=== PATIENT | female | born 1990 | race African-American/Black ===

== ENCOUNTER 2016-08-21 17:07 | Emergency (ER) | payer OTHER ==
[2016-08-21] MEDS ORDERED: ACETAMINOPHEN 325 MG TAB As Ordered ONE (20:23)
--- NOTE | 2016-08-21 20:40 | EDDOCDS ---
Nurse's Notes [facility] Name: Xiomara Garg Age: 26 yrs Sex: Female : 1990 Arrival Date: 08/21/2016 Time: 17:07 Bed TR8 Private MD: NO PRIMARY PHYSICIAN, . Diagnosis: Pain in left knee-CHRONIC Presentation: 08/21 17:48 Presenting complaint: Patient states: Left knee pain, chronic, denies injury, pain much dwg worse when colder. Adult Sepsis Screening: The patient does not have new or worsening altered mentation. Patient's respiratory rate is less than 22. Systolic blood pressure is greater than 100. Patient has a qSOFA score of 0- Negative Sepsis Screen. Suicide/Homicide risk assessment- the patient denies having any suicidal and/or homicidal ideations and does not present with any other emotional, behavioral or mental health complaints. Status: The patient is a dependent. Transition of care: patient was not received from another setting of care. 17:48 Acuity: BREANA Level 4 dwg 17:48 Method Of Arrival: Walkin/Carried/Asstd dwg 17:50 Presenting complaint: Patient states: States 24 weeks . dw Triage Assessment: 17:50 General: Appears in no apparent distress. Pain: Pain currently is 8 out of 10 on a pain dwg scale. Pt Declines HIV testing. 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 none - PMHx: Knee pain; - PSHx: none; - Social history: Smoking status: Patient states was never smoker of tobacco. No barriers to communication noted, The patient speaks fluent Bengali. - Family history: Not pertinent. - : The pt / caregiver states he / she is not on anticoagulants. Home medication list is obtained from the patient. - Exposure Risk Screening:: None identified. Screenin:37 Screening information is obtained from the patient. Fall risk: No risks identified. mb9 Assistance ADL's: requires no assistance with activities of daily living. Abuse/DV Screen: The patient / caregiver reports he/she is: not in a situation that causes fear, pain or injury. Nutritional screening: No deficits noted. Advance Directives: There is no active DNR order. home support is adequate. Assessment: 20:31 General: Appears in no apparent distress, Behavior is appropriate for age, cooperative. sls1 Pain: Denies pain. Neurological: Level of Consciousness is awake, alert. Respiratory: Airway is patent Respiratory effort is even, unlabored. Derm: No deficits noted. Vital Signs: 17:09 BP 101 / 69; Pulse 99; Resp 18 S; Temp 98.9(O); Pulse Ox 100% on R/A; Weight 87.54 kg gr2 (R); Height 5 ft. 0 in. (152.40 cm) (R); Pain 8/10; 17:09 Body Mass Index 37.69 (87.54 kg, 152.40 cm) gr2 Vitals: 17:09 Log In Time: August 21, 2016 at 17:09. gr2 20:31 Heart Tones 142BPM. sls1 ED Course: 17:09 Patient visited by Thom Goldman. gr2 17:09 NO PRIMARY PHYSICIAN, . is Private Physician. gr2 17:09 Patient moved to Waiting gr2 17:10 Patient visited by Thom Goldman. gr2 17:12 Patient moved to Pre RCE gr2 17:49 Triage Initiated dwg 19:29 Patient moved to Triage 3 sls1 20:13 Vance Simon RPA-C is PHCP. ck7 20:13 Isaak Fournier DO is Attending Physician. ck7 20:13 Patient visited by Vance Simon RPA-C. ck7 20:30 [facility] is Referral Physician. ck7 20:30 Tressa [facility] is Referral Physician. ck7 20:31 Patient visited by Sierra Smith RN. sls1 20:37 Patient moved to TR8 mb9 20:37 The patient / caregiver is instructed regarding the plan of care and ED course. mb9 20:37 No IV's were initiated during this patient's visit. No procedures done that require mb9 assistance. David wrap to left knee. Crutch training done. Crutch training done. pt refusing to use crutches and states, "I'll use them when I get home". Administered Medications: 20:25 Drug: Acetaminophen 650 mg [acetaminophen 325 mg tablet (2 tabs)] Route: PO; sls1 Order Results: There are currently no results for this order. Outcome: 20:30 Discharge ordered by Provider. ck7 20:37 Discharge Assessment: Patient awake, alert and oriented x 3. No cognitive and/or mb9 functional deficits noted. Patient verbalized understanding of disposition instructions. patient administered narcotics - no. The following High Risk Discharge criteria are identified: None. Discharged to home ambulatory. Condition: good Condition: stable Condition: improved. Discharge instructions given to patient, Instructed on discharge instructions, follow up and referral plans. medication usage, crutch walking, Demonstrated understanding of instructions, medications, Pt was receptive of discharge instructions/ teaching. Prescriptions given X 1. No special radiology studies were completed. Property :Personal belongings accompany Pt. 20:40 Patient left the ED. mb9 Signatures: Hasmukh Caldwell, RN RN Sierra Higginbotham RN RN sls1 Vance Simon, KATTY-C RPA-Cck7 Thom Goldman gr2 Jimmy Chanel,RN RN mb9 MTDAngelia
--- NOTE | 2016-08-21 20:40 | EDDOCDS ---
Physician Documentation [facility] Name: Xiomara Garg Age: 26 yrs Sex: Female : 1990 Arrival Date: 08/21/2016 Time: 17:07 Bed TR8 Private MD: NO PRIMARY PHYSICIAN, . Disposition: 08/21/16 20:30 Discharged to Home/Self Care. Impression: Pain in left knee - CHRONIC. - Condition is Stable. - Discharge Instructions: Knee Pain. - Prescriptions for Tylenol 325 mg Oral Tablet - take 2 tablet by ORAL route every 6 hours as needed; 1 bottle. - Medication Reconciliation, Local Pharmacy Hours form. - Follow up: [facility]; When: 1 - 2 days; Reason: Recheck today's complaints, Continuance of care. Follow up: [facility]; When: 1 - 2 days; Reason: Recheck today's complaints, Continuance of care. - Problem is new. - Symptoms have improved. - Notes: USE TYLENOL, DAVID AND CRUTCHES, FOLLOW UP WITH [facility] AND IF NEEDED, ORTHOPEDICS Historical: - Allergies: no known allergies; - Home Meds: 1. none - PMHx: Knee pain; - PSHx: none; - Social history: Smoking status: Patient states was never smoker of tobacco. No barriers to communication noted, The patient speaks fluent Grenadian. - Family history: Not pertinent. - : The pt / caregiver states he / she is not on anticoagulants. Home medication list is obtained from the patient. - Exposure Risk Screening:: None identified. ADDICTION SPECIALIST: 08/21 17:50 LMP 03/06/2016 [facility] [place] Vital Signs: 17:09 BP 101 / 69; Pulse 99; Resp 18 S; Temp 98.9(O); Pulse Ox 100% on R/A; Weight 87.54 kg / gr2 192.99 lbs (R); Height 5 ft. 0 in. (152.40 cm) (R); Pain 8/10; 17:09 Body Mass Index 37.69 (87.54 kg, 152.40 cm) gr2 MDM: 20:21 Heart Tones ordered. ck7 20:21 Acetaminophen Tablet 650 mg PO once ordered. ck7 20:21 David Wrap ordered. ck7 20:21 Crutches ordered. ck7 Administered Medications: 20:25 Drug: Acetaminophen 650 mg [acetaminophen 325 mg tablet (2 tabs)] Route: PO; [facility] Signatures: Hasmukh Caldwell RN RN dwg Sierar Smith RN RN sls1 Vance Simon, KATTY-C RPA-Cck7 Jimmy ChanelRN RN mb9 MTDD
--- NOTE | 2016-08-23 21:40 | EDDOCDS ---
Physician Documentation [facility] Name: Xiomara Garg Age: 26 yrs Sex: Female : 1990 Arrival Date: 08/21/2016 Time: 17:07 Bed TR8 Private MD: NO PRIMARY PHYSICIAN, . Disposition: 08/21/16 20:30 Discharged to Home/Self Care. Impression: Pain in left knee - CHRONIC. - Condition is Stable. - Discharge Instructions: Knee Pain. - Prescriptions for Tylenol 325 mg Oral Tablet - take 2 tablet by ORAL route every 6 hours as needed; 1 bottle. - Medication Reconciliation, Local Pharmacy Hours form. - Follow up: [facility]; When: 1 - 2 days; Reason: Recheck today's complaints, Continuance of care. Follow up: [facility]; When: 1 - 2 days; Reason: Recheck today's complaints, Continuance of care. - Problem is new. - Symptoms have improved. - Notes: USE TYLENOL, DAVID AND CRUTCHES, FOLLOW UP WITH ANDRAE AND IF NEEDED, ORTHOPEDICS Historical: - Allergies: no known allergies; - Home Meds: 1. none - PMHx: Knee pain; - PSHx: none; - Social history: Smoking status: Patient states was never smoker of tobacco. No barriers to communication noted, The patient speaks fluent American. - Family history: Not pertinent. - : The pt / caregiver states he / she is not on anticoagulants. Home medication list is obtained from the patient. - Exposure Risk Screening:: None identified. 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 0 in. (152.40 cm) (R); Pain 8/10; 17:09 Body Mass Index 37.69 (87.54 kg, 152.40 cm) gr2 MDM: 20:21 Heart Tones ordered. ck7 20:21 Acetaminophen Tablet 650 mg PO once ordered. ck7 20:21 David Wrap ordered. ck7 20:21 Crutches ordered. ck7 20:41 [facility] Payment Agreement was scanned into aCon and attached to record. [facility] 20:41 Financial registration complete. [facility] 08/22 11:31 T-Sheet-- Draft Copy was scanned into aCon and attached to record. gb Administered Medications: 08/21 20:25 Drug: Acetaminophen 650 mg [acetaminophen 325 mg tablet (2 tabs)] Route: PO; sls1 Signatures: Hasmukh Caldwell RN RN g Alexandra Vasquez, Reg Reg Sierra Smith RN RN sls1 Vance Simon, RPA-C RPA-Cck7 Jimmy ChanelRN RN mb9 Adrianna Herbert [facility] The chart was reviewed and I authenticate all verbal orders and agree with the evaluation and treatment provided.Attachments: 20:41 [facility] Payment Agreement [facility] 08/22 11:31 T-Sheet-- Draft Copy gb Chart Complete MTDD
--- NOTE | 2016-08-23 21:40 | EDDOCDS ---
Nurse's Notes [facility] Name: Xiomara Garg Age: 26 yrs Sex: Female : 1990 Arrival Date: 08/21/2016 Time: 17:07 Bed TR8 Private MD: NO PRIMARY PHYSICIAN, . Diagnosis: Pain in left knee-CHRONIC Presentation: 08/21 17:48 Presenting complaint: Patient states: Left knee pain, chronic, denies injury, pain much dwg worse when colder. Adult Sepsis Screening: The patient does not have new or worsening altered mentation. Patient's respiratory rate is less than 22. Systolic blood pressure is greater than 100. Patient has a qSOFA score of 0- Negative Sepsis Screen. Suicide/Homicide risk assessment- the patient denies having any suicidal and/or homicidal ideations and does not present with any other emotional, behavioral or mental health complaints. Status: The patient is a dependent. Transition of care: patient was not received from another setting of care. 17:48 Acuity: BREANA Level 4 dwg 17:48 Method Of Arrival: Walkin/Carried/Asstd dwg 17:50 Presenting complaint: Patient states: States 24 weeks . dw Triage Assessment: 17:50 General: Appears in no apparent distress. Pain: Pain currently is 8 out of 10 on a pain dwg scale. Pt Declines HIV testing. 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 none - PMHx: Knee pain; - PSHx: none; - Social history: Smoking status: Patient states was never smoker of tobacco. No barriers to communication noted, The patient speaks fluent Italian. - Family history: Not pertinent. - : The pt / caregiver states he / she is not on anticoagulants. Home medication list is obtained from the patient. - Exposure Risk Screening:: None identified. Screenin:37 Screening information is obtained from the patient. Fall risk: No risks identified. mb9 Assistance ADL's: requires no assistance with activities of daily living. Abuse/DV Screen: The patient / caregiver reports he/she is: not in a situation that causes fear, pain or injury. Nutritional screening: No deficits noted. Advance Directives: There is no active DNR order. home support is adequate. Assessment: 20:31 General: Appears in no apparent distress, Behavior is appropriate for age, cooperative. sls1 Pain: Denies pain. Neurological: Level of Consciousness is awake, alert. Respiratory: Airway is patent Respiratory effort is even, unlabored. Derm: No deficits noted. Vital Signs: 17:09 BP 101 / 69; Pulse 99; Resp 18 S; Temp 98.9(O); Pulse Ox 100% on R/A; Weight 87.54 kg gr2 (R); Height 5 ft. 0 in. (152.40 cm) (R); Pain 8/10; 17:09 Body Mass Index 37.69 (87.54 kg, 152.40 cm) gr2 Vitals: 17:09 Log In Time: August 21, 2016 at 17:09. gr2 20:31 Heart Tones 142BPM. sls1 ED Course: 17:09 Patient visited by Thom Goldman. gr2 17:09 NO PRIMARY PHYSICIAN, . is Private Physician. gr2 17:09 Patient moved to Waiting gr2 17:10 Patient visited by Thom Goldman. gr2 17:12 Patient moved to Pre RCE gr2 17:49 Triage Initiated dwg 19:29 Patient moved to Triage 3 sls1 20:13 Vance Simon RPA-C is PHCP. ck7 20:13 Isaak Fournier DO is Attending Physician. ck7 20:13 Patient visited by Vance Simon RPA-C. ck7 20:30 [facility] is Referral Physician. ck7 20:[address] [facility] is Referral Physician. ck7 20:31 Patient visited by Sierra Smith RN. sls1 20:37 Patient moved to TR8 mb9 20:37 The patient / caregiver is instructed regarding the plan of care and ED course. mb9 20:37 No IV's were initiated during this patient's visit. No procedures done that require mb9 assistance. David wrap to left knee. Crutch training done. Crutch training done. pt refusing to use crutches and states, "I'll use them when I get home". 20:41 [facility] Payment Agreement was scanned into App[employer]ple and attached to record. gjmary 08/22 11:31 T-Sheet-- Draft Copy was scanned into [employer] and attached to record. gb Administered Medications: 08/21 20:25 Drug: Acetaminophen 650 mg [acetaminophen 325 mg tablet (2 tabs)] Route: PO; sls1 Order Results: There are currently no results for this order. Outcome: 20:30 Discharge ordered by Provider. ck7 20:37 Discharge Assessment: Patient awake, alert and oriented x 3. No cognitive and/or mb9 functional deficits noted. Patient verbalized understanding of disposition instructions. patient administered narcotics - no. The following High Risk Discharge criteria are identified: None. Discharged to home ambulatory. Condition: good Condition: stable Condition: improved. Discharge instructions given to patient, Instructed on discharge instructions, follow up and referral plans. medication usage, crutch walking, Demonstrated understanding of instructions, medications, Pt was receptive of discharge instructions/ teaching. Prescriptions given X 1. No special radiology studies were completed. Property :Personal belongings accompany Pt. 20:40 Patient left the ED. mb9 Signatures: Hasmukh Caldwell, RN RN Alexandra Osei, Miguel A Reg Sierra Oates, RN RN sls1 Vance Simon, RPA-C RPA-Cck7 Thom Goldman gr2 Jimmy Chanel,RN RN mb9 Adrianna Herbert Chart Complete MTDD
--- NOTE | 2016-08-23 21:40 | EDDOCDS ---
Physician Documentation [facility] Name: Xiomara Garg Age: 26 yrs Sex: Female : 1990 Arrival Date: 08/21/2016 Time: 17:07 Bed TR8 Private MD: NO PRIMARY PHYSICIAN, . Disposition: 08/21/16 20:30 Discharged to Home/Self Care. Impression: Pain in left knee - CHRONIC. - Condition is Stable. - Discharge Instructions: Knee Pain. - Prescriptions for Tylenol 325 mg Oral Tablet - take 2 tablet by ORAL route every 6 hours as needed; 1 bottle. - Medication Reconciliation, Local Pharmacy Hours form. - Follow up: [facility]; When: 1 - 2 days; Reason: Recheck today's complaints, Continuance of care. Follow up: [facility]; When: 1 - 2 days; Reason: Recheck today's complaints, Continuance of care. - Problem is new. - Symptoms have improved. - Notes: USE TYLENOL, DAVID AND CRUTCHES, FOLLOW UP WITH ANDRAE AND IF NEEDED, ORTHOPEDICS Historical: - Allergies: no known allergies; - Home Meds: 1. none - PMHx: Knee pain; - PSHx: none; - Social history: Smoking status: Patient states was never smoker of tobacco. No barriers to communication noted, The patient speaks fluent Swedish. - Family history: Not pertinent. - : The pt / caregiver states he / she is not on anticoagulants. Home medication list is obtained from the patient. - Exposure Risk Screening:: None identified. 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 0 in. (152.40 cm) (R); Pain 8/10; 17:09 Body Mass Index 37.69 (87.54 kg, 152.40 cm) gr2 MDM: 20:21 Heart Tones ordered. ck7 20:21 Acetaminophen Tablet 650 mg PO once ordered. ck7 20:21 David Wrap ordered. ck7 20:21 Crutches ordered. ck7 20:41 [facility] Payment Agreement was scanned into [employer] and attached to record. [facility] 20:41 Financial registration complete. [facility] 08/22 11:31 T-Sheet-- Draft Copy was scanned into [employer] and attached to record. gb Administered Medications: 08/21 20:25 Drug: Acetaminophen 650 mg [acetaminophen 325 mg tablet (2 tabs)] Route: PO; sls1 Signatures: Hasmukh Caldwell RN RN g Alexandra Vasquez, Reg Reg Sierra Smith RN RN sls1 Vance Simon, RPA-C RPA-[id number] Jimmy ChanelRN RN mb9 Adrianna Herbert [facility] The chart was reviewed and I authenticate all verbal orders and agree with the evaluation and treatment provided.Attachments: 20:41 [facility] Payment Agreement [facility] 08/22 11:31 T-Sheet-- Draft Copy gb Chart Complete MTDD
== END 2016-08-21 20:40 | disposition home or self-care (01) ==
LOC: M ED 17:07
DX: M25.562 Pain in left knee (principal)

== ENCOUNTER 2016-08-22 12:04 | Emergency (ER) | payer OTHER ==
[2016-08-22 13:22] LABS: BASO % 0.3 % (0.0-1.0); EOS # 0.1 K/mm3 (0.0-0.50); LARGE UNSTAINED CELL # 0.1 K/mm3 (0.0-0.4); LARGE UNSTAINED CELL % 1.1 % (0.0-4.0); LYMPH # 1.6 K/mm3 (1.5-6.5); LYMPH % 15.9 % (24.0-44.0); MEAN CORPUSCULAR HEMOGLOBIN 27.4 pg (27.0-33.0); MEAN CORPUSCULAR HGB CONC 34.1 g/dl (32.0-36.5); MEAN CORPUSCULAR VOLUME 80.5 fl (80.0-96.0); MONO # 0.4 K/mm3 (0.0-0.8); MONO % 3.9 % (0.0-5.0); NEUTROPHILS % 77.8 % (36.0-66.0); PLATELET COUNT, AUTOMATED 368 k/mm3 (150-450); RED CELL DISTRIBUTION WIDTH 13.3 % (11.5-14.5); WHITE BLOOD COUNT 10.3 K/mm3 (4.0-10.0)
[2016-08-22 13:30] LABS: CONTROL LINE UCG INT CTR LINE PRESENT
[2016-08-22 13:40] LABS: ALBUMIN 2.6 GM/DL (3.2-5.2); ALBUMIN/GLOBULIN RATIO 0.63 (1.00-1.93); ALKALINE PHOSPHATASE 80 U/L (45-117); ALT/SGPT 16 U/L (12-78); ANION GAP 8 MEQ/L (8-16); AST/SGOT 13 U/L (15-37); BILIRUBIN,DIRECT < 0.1 MG/DL (0.0-0.2); BILIRUBIN,TOTAL 0.3 MG/DL (0.2-1.0); BLOOD UREA NITROGEN 4 MG/DL (7-18); CALCIUM LEVEL 8.4 MG/DL (8.5-10.1); CARBON DIOXIDE LEVEL 24 MEQ/L (21-32); CHLORIDE LEVEL 109 MEQ/L (98-107); CREATININE FOR GFR 0.52 MG/DL (0.55-1.02); GLOMERULAR FILTRATION RATE > 60.0 (>60); GLUCOSE, FASTING 63 MG/DL (70-105); POTASSIUM SERUM 3.9 MEQ/L (3.5-5.1); SODIUM LEVEL 141 MEQ/L (136-145); TOTAL PROTEIN 6.7 GM/DL (6.4-8.2)
[2016-08-22 13:53] LABS: AMPHETAMINES LEVEL URINE NEGATIVE (NEGATIVE); BENZODIAZEPINES URINE NEGATIVE (NEGATIVE); COCAINE METABOLITE URINE NEGATIVE (NEGATIVE); CONTROL LINE INT CTR LINE PRESENT; METHADONE URINE NEGATIVE (NEGATIVE); OPIATES URINE NEGATIVE (NEGATIVE); TRICYCLIC ANTIDEPRESS URINE NEGATIVE (NEGATIVE)
[2016-08-22] MEDS ORDERED: DEXTROSE 50% 50 ML SYRINGE As Ordered ONE (13:57)
--- NOTE | 2016-08-22 15:01 | EDDOCDS ---
Physician Documentation [facility] Name: Xiomara Garg Age: 26 yrs Sex: Female : 1990 Arrival Date: 08/22/2016 Time: 12:04 Bed 4 Private MD: BOB Bustillos Disposition: 08/22/16 14:25 Discharged to Home/Self Care. Impression: Adjustment disorder with depressed mood, Altered mental status, unspecified. - Condition is Stable. - Discharge Instructions: Depression, Adult, Self-Destructive Behavior, Altered Mental Status. - Medication Reconciliation, Local Pharmacy Hours form. - Follow up: [facility]; When: 4 - 5 days; Reason: Recheck today's complaints, Continuance of care. - Problem is an acute exacerbation. - Symptoms have improved. Historical: - Allergies: No known drug Allergies; - Home Meds: 1. none - PMHx: KNEE PAIN; - PSHx: none; - Family history: Not pertinent. - Social history: Smoking status: unknown if patient ever smoked tobacco. No barriers to communication noted, The patient speaks fluent Turkish. - : The pt / caregiver states he / she is not on anticoagulants. Home medication list is obtained from the patient. - Exposure Risk Screening:: None identified. 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 ke 12:41 Accucheck ordered. ke 12:41 IV Saline Lock ordered. ke 12:41 Oxygen at 4L/Min NC or Home dosage ordered. ke 12:41 Rhythm Strip to chart ordered. ke 12:41 Heart Tones ordered. ke 12:42 CBC with Diff Ordered. EDMS 12:42 Cardiac Injury Profile Ordered. EDMS 12:42 Drug Eval Toxicology ED Only Ordered. EDMS 12:42 Liver Profile Ordered. EDMS 12:42 MED Profile Ordered. EDMS 12:42 Thyroid Stimulating Hormone Ordered. EDMS 12:42 Troponin Ordered. EDMS 12:42 Urinalysis Ordered. EDMS 12:42 Urine Test-In Lab Ordered. EDMS 12:43 ECG WITH READING ER PHYS+CARDIAG ordered. EDMS 13:42 CBC with Diff Reviewed. ke 13:42 Liver Profile Reviewed. ke 13:42 MED Profile Reviewed. ke 13:42 Urinalysis Reviewed. ke 13:42 Urine Test-In Lab Reviewed. ke 13:42 Troponin Reviewed. ke 13:43 D50W 25 ml IVP once; (0.5 amp) ordered. ke 13:43 Consult: Warp Bleaching Vat Tender ordered. ke 14:20 Liver Profile Reviewed. ke 14:20 MED Profile Reviewed. ke 14:20 Urinalysis Reviewed. ke 14:20 Urine Test-In Lab Reviewed. ke 14:20 Cardiac Injury Profile Reviewed. ke 14:20 Drug Eval Toxicology ED Only Reviewed. ke 14:20 Thyroid Stimulating Hormone Reviewed. ke 14:20 Troponin Reviewed. ke 14:32 Consult: Warp Bleaching Vat Tender complete. ca 14:59 Financial registration complete. lg Administered Medications: 14:00 Drug: D50W 25 ml [dextrose 50 % in water (D50W) intravenous syringe (25 mL)] Route: jo3 IVP; Site: right antecubital; Signatures: Dispatcher [employer] EDMS Chyna Lang, PSA PSA Radha Davis, Reg Reg lg Oumar Mcdaniel, RESEARCH SPECIALIST RESEARCH SPECIALIST Anne Marie Powers RN RN jo3 Lisset Gonzalez RN RN nr1 MTDD
--- NOTE | 2016-08-22 15:01 | EDDOCDS ---
Nurse's Notes [facility] Name: Xiomara Garg Age: 26 yrs Sex: Female : 1990 Arrival Date: 08/22/2016 Time: 12:04 Bed 4 Private MD: BOB Bustillos Diagnosis: Adjustment disorder with depressed mood;Altered mental status, unspecified Presentation: 08/22 12:09 Presenting complaint: EMS states: Was being seen at [place] for a f/u for left knee jo3 pain. While with provider, became verbally unresponsive. Had FSBS 115 on scene prior to EMS arrival. FSBS 88 by FDEMS. Adult Sepsis Screening: Patient has new or worsening altered mentation (1 point). Suicide/Homicide risk assessment- the patient denies having any suicidal and/or homicidal ideations and does not present with any other emotional, behavioral or mental health complaints. Status: The patient is a dependent. Transition of care: patient was received from a primary care office; [place]. 12:09 Acuity: BREANA Level 3 jo3 12:09 Method Of Arrival: Ambulance jo3 14:40 Adult Sepsis Screening: Patient's respiratory rate is less than 22. Systolic blood nr1 pressure is greater than 100. Patient has a qSOFA score of No known or suspected infection- Negative Sepsis Screen. Triage Assessment: 12:34 General: Appears in no apparent distress, Behavior is drowsy, flat. Pain: Denies pain. jo3 HIV screening NA for this visit Offered previously. The patient is triaged at the bedside. See Assessment in Nurses Notes section of ED record. Neurological: Level of Consciousness is lethargic, obeys commands, Oriented to person. Cardiovascular: No deficits noted. Capillary refill is brisk Rhythm is sinus rhythm No ectopy. Chest pain is denied. Respiratory: Airway is patent Respiratory effort is even, unlabored. Derm: Skin is intact, Skin is dry, Skin is normal, Skin temperature is warm. RATE SETTER: 12:12 2, Living 1, LMP 03/06/2016 jo3 Historical: - Allergies: No known drug Allergies; - Home Meds: 1. none - PMHx: KNEE PAIN; - PSHx: none; - Family history: Not pertinent. - Social history: Smoking status: unknown if patient ever smoked tobacco. No barriers to communication noted, The patient speaks fluent Nepali. - : The pt / caregiver states he / she is not on anticoagulants. Home medication list is obtained from the patient. - Exposure Risk Screening:: None identified. Screenin:37 Screening information is obtained from the patient. Fall risk: At risk due to apparent jo3 cognitive impairment. Assistance ADL's: requires no assistance with activities of daily living. Abuse/DV Screen: The patient / caregiver reports he/she is: not in a situation that causes fear, pain or injury. Nutritional screening: No deficits noted. Advance Directives: There is no active DNR order. home support is adequate. Assessment: 12:37 Reassessment: see triage assessment . jo3 13:18 General: Appears in no apparent distress, comfortable, Behavior is cooperative, drowsy, jo3 flat. Neurological: Level of Consciousness is awake, Oriented to person, place, time. Cardiovascular: No deficits noted. Respiratory: Airway is patent Respiratory effort is even, unlabored. Derm: Skin is pink, warm & dry. 14:40 Reassessment: Patient lying on her side in bed. No complaints of pain. respirations nr1 even and unlabored. Per patient "my is on his way to pick me up.". Social Work Consult: 14:34 Social Work Note: Pt denies any known health concerns. She is 24 weeks and has ca been suffering from back pain for 2 weeks. to a [employer] soldier who is being transferred to [place] in October and pt is unhappy about this and this appears to be her main stressor. She has no family supports in this country and came here from [place] after marrying her . They have a 10 y/o son as well. No SI or HI, no hx of MH concerns. Pt has been reading about [place] and is just not happy with the climate and winter weather. Discussed supports for counseling if pt desires. At this time she does not. No other concerns noted at this time. Vital Signs: 12:14 BP 116 / 69; Pulse 85; Resp 16; Temp 98.0(O); Pulse Ox 99% on R/A; Pain 0/10; nb2 14:38 BP 160 / 52; Pulse 93; Resp 16; Temp 96.2(T); Pulse Ox 97% ; Pain 0/10; nr1 Vitals: 12:12 Log In Time N/A - ambulance arrival. jo3 ED Course: 12:05 Patient visited by Shreya Vale, Encoding Machine Operator. lbd 12:05 BOB Bustillos is Private Physician. lbd 12:05 Patient moved to Waiting lbd 12:05 Patient moved to 4 lbd 12:12 Triage Initiated jo3 12:13 Patient visited by Anne Marie Broussard RN. jo3 12:14 Patient visited by Lisset Johnson. nb2 12:14 Placed in gown. Bed in low position. Call light in reach. Side rails up X2. Cardiac nb2 monitor on. Pulse ox on. NIBP on. 12:35 Oumar Mcdaniel FNP is PHCP. ke 12:35 Patient visited by Oumar Mcdaniel FNP. ke 12:36 Patient visited by Oumar Mcdaniel FNP. ke 12:37 The patient / caregiver is instructed regarding the plan of care and ED course. jo3 12:38 Patient visited by Anne Marie Broussard RN. jo3 12:50 EKG done. (by ED staff). Reviewed by Oumar AGUILAR. nb2 12:53 Patient visited by Lisset Johnson. nb2 13:18 Maintain field IV. Dressing intact. Good blood return noted. Site clean & dry. Gauge & jo3 site: 20g RAC. 13:21 Patient visited by Anne Marie Broussard RN. jo3 13:21 Drug Eval Toxicology ED Only Sent. jo3 13:21 Urinalysis Sent. jo3 13:22 Urine Test-In Lab Sent. jo3 13:38 Patient visited by Matthew Reeves PCA. jlf 14:06 Patient visited by Matthew Reeves PCA. jlf 14:24 BOB Bustillos is Referral Physician. ke 14:38 Discontinued IV lock intact, bleeding controlled, pressure dressing applied, No nr1 redness/swelling at site. 14:38 No procedures done that require assistance. nr1 Administered Medications: 14:00 Drug: D50W 25 ml [dextrose 50 % in water (D50W) intravenous syringe (25 mL)] Route: jo3 IVP; Site: right antecubital; Order Results: Lab Order: CBC with Diff; SPEC'M 08/22/16 13:06 Test: WHITE BLOOD COUNT; Value: 10.3; Range: 4.0-10.0; Abnormal: Above high normal; Units: K/mm3; Status: F Test: RED BLOOD COUNT; Value: 3.71; Range: 4.00-5.40; Abnormal: Below low normal; Units: M/mm3; Status: F Test: HEMOGLOBIN; Value: 10.2; Range: 12.0-16.0; Abnormal: Below low normal; Units: g/dl; Status: F Test: HEMATOCRIT; Value: 29.8; Range: 36.0-47.0; Abnormal: Below low normal; Units: %; Status: F Test: MEAN CORPUSCULAR VOLUME; Value: 80.5; Range: 80.0-96.0; Units: fl; Status: F Test: MEAN CORPUSCULAR HEMOGLOBIN; Value: 27.4; Range: 27.0-33.0; Units: pg; Status: F Test: MEAN CORPUSCULAR HGB CONC; Value: 34.1; Range: 32.0-36.5; Units: g/dl; Status: F Test: RED CELL DISTRIBUTION WIDTH; Value: 13.3; Range: 11.5-14.5; Units: %; Status: F Test: PLATELET COUNT, AUTOMATED; Value: 368; Range: 150-450; Units: k/mm3; Status: F Test: NEUTROPHILS %; Value: 77.8; Range: 36.0-66.0; Abnormal: Above high normal; Units: %; Status: F Test: LYMPH %; Value: 15.9; Range: 24.0-44.0; Abnormal: Below low normal; Units: %; Status: F Test: MONO %; Value: 3.9; Range: 0.0-5.0; Units: %; Status: F Test: EOS %; Value: 1.0; Range: 0.0-3.0; Units: %; Status: F Test: BASO %; Value: 0.3; Range: 0.0-1.0; Units: %; Status: F Test: LARGE UNSTAINED CELL %; Value: 1.1; Range: 0.0-4.0; Units: %; Status: F Test: NEUTROPHILS #; Value: 8.0; Range: 1.8-7.7; Abnormal: Above high normal; Units: K/mm3; Status: F Test: LYMPH #; Value: 1.6; Range: 1.5-6.5; Units: K/mm3; Status: F Test: MONO #; Value: 0.4; Range: 0.0-0.8; Units: K/mm3; Status: F Test: EOS #; Value: 0.1; Range: 0.0-0.50; Units: K/mm3; Status: F Test: BASO #; Value: 0.0; Range: 0.0-0.2; Units: K/mm3; Status: F Test: LARGE UNSTAINED CELL #; Value: 0.1; Range: 0.0-0.4; Units: K/mm3; Status: F Lab Order: Cardiac Injury Profile; SPEC'M 08/22/16 13:06 Test: CPK CREATINE PHOSPHOKINASE; Value: 44; Range: 26-192; Units: U/L; Status: F Test: CK-MB VALUE MASS; Value: 1.0; Range: 0.0-3.6; Units: NG/ML; Status: F Test: MB/CK RELATIVE INDEX; Value: 2.27; Range: < OR =4; Status: F Test Note: ; DIAGNOSIS CRITERIA MMB ng/ml Relative Index (RI) NON-AMI < or = 5 N/A AVELAR ZONE > 5 < or = 4 AMI > 5 > 4 Lab Order: Drug Eval Toxicology ED Only; SPEC'M 08/22/16 13:15 Test: AMPHETAMINES LEVEL URINE; Value: NEGATIVE; Range: NEGATIVE; Status: F Test: BARBITURATES URINE; Value: NEGATIVE; Range: NEGATIVE; Status: F Test: BENZODIAZEPINES URINE; Value: NEGATIVE; Range: NEGATIVE; Status: F Test: CANNABINOIDS URINE; Value: NEGATIVE; Range: NEGATIVE; Status: F Test: COCAINE METABOLITE URINE; Value: NEGATIVE; Range: NEGATIVE; Status: F Test: METHADONE URINE; Value: NEGATIVE; Range: NEGATIVE; Status: F Test: OPIATES URINE; Value: NEGATIVE; Range: NEGATIVE; Status: F Test: TRICYCLIC ANTIDEPRESS URINE; Value: NEGATIVE; Range: NEGATIVE; Status: F Test Note: ; ALL PRESUMPTIVE POSITIVE FINDINGS ARE UNCONFIRMED NORMAL VALUES THRESHOLD IN NG/ML AMPHETAMINES 1000 METHAMPHETAMINES 1000 BARBITURATES 300 BENZODIAZEPINES 300 CANNABINOIDS (THC) 50 COCAINE METABOLITE 300 METHADONE 300 OPIATES 300 PHENCYCLIDINE 25 TRICYCLIC ANTIDEPRESSANTS 1000 RESULTS ARE FOR MEDICAL PURPOSES ONLY. ALL URINE SPECIMENS WILL BE SAVED FOR 3 DAYS. IF CONFIRMATION OF A PRESUMPTIVE POSTIVE SCREEN RESULT IS DESIRED, CALL CHEMISTRY ([phone]) AND REQUEST URINE TO BE SENT TO REFERENCE LAB. FOR A LIST OF CLOSELY RELATED COMPOUNDS PLEASE CALL THE LAB. Lab Order: Liver Profile; SPEC'M 08/22/16 13:06 Test: AST/SGOT; Value: 13; Range: 15-37; Abnormal: Below low normal; Units: U/L; Status: F Test: ALT/SGPT; Value: 16; Range: 12-78; Units: U/L; Status: F Test: ALKALINE PHOSPHATASE; Value: 80; Range: 45-117; Units: U/L; Status: F Test: BILIRUBIN,TOTAL; Value: 0.3; Range: 0.2-1.0; Units: MG/DL; Status: F Test: BILIRUBIN,DIRECT; Value: < 0.1; Range: 0.0-0.2; Units: MG/DL; Status: F Test: TOTAL PROTEIN; Value: 6.7; Range: 6.4-8.2; Units: GM/DL; Status: F Test: ALBUMIN; Value: 2.6; Range: 3.2-5.2; Abnormal: Below low normal; Units: GM/DL; Status: F Test: ALBUMIN/GLOBULIN RATIO; Value: 0.63; Range: 1.00-1.93; Abnormal: Below low normal; Status: F Lab Order: MED Profile; SPEC'M 08/22/16 13:06 Test: GLUCOSE, FASTING; Value: 63; Range: 70-105; Abnormal: Below low normal; Units: MG/DL; Status: F Test: BLOOD UREA NITROGEN; Value: 4; Range: 7-18; Abnormal: Below low normal; Units: MG/DL; Status: F Test: CREATININE FOR GFR; Value: 0.52; Range: 0.55-1.02; Abnormal: Below low normal; Units: MG/DL; Status: F Test: GLOMERULAR FILTRATION RATE; Value: > 60.0; Range: >60; Status: F Test: SODIUM LEVEL; Value: 141; Range: 136-145; Units: MEQ/L; Status: F Test: POTASSIUM SERUM; Value: 3.9; Range: 3.5-5.1; Units: MEQ/L; Status: F Test: CHLORIDE LEVEL; Value: 109; Range: 98-107; Abnormal: Above high normal; Units: MEQ/L; Status: F Test: CARBON DIOXIDE LEVEL; Value: 24; Range: 21-32; Units: MEQ/L; Status: F Test: ANION GAP; Value: 8; Range: 8-16; Units: MEQ/L; Status: F Test: CALCIUM LEVEL; Value: 8.4; Range: 8.5-10.1; Abnormal: Below low normal; Units: MG/DL; Status: F Test Note: ; Units are mL/min/1.73 m2 Chronic Kidney Disease Staging per NKF: Stage I & II GFR >=60 Normal to Mildly Decreased Stage III GFR 30-59 Moderately Decreased Stage IV GFR 15-29 Severely Decreased Stage V GFR <15 Very Little GFR Left ESRD GFR <15 on CLINICAL INFORMATICS SPEC Lab Order: Thyroid Stimulating Hormone; SPEC'M 08/22/16 13:06 Test: THYROID STIMULATING HORMONE; Value: 1.740; Range: 0.358-3.740; Units: uIU/ML; Status: F Lab Order: Troponin; SPEC'M 08/22/16 13:06 Test: TROPONIN I; Value: < 0.02; Range: < 0.10; Units: NG/ML; Status: F Test Note: ; Troponin I Reference Interval for [employer] LOCI: 99th Percentile= 0.00-0.045 ng/ml Risk Stratification: <= 0.10 ng/ml Decreased Risk for Adverse Clinical Events. 0.10-1.50 ng/ml Increased Risk for Adverse Clinical Events. Evaluation of additional criterion and/or repeat testing in 2-6 hours is suggested to rule out myocardial damage. >= 1.50 ng/ml Indicative of Myocardial Injury. Lab Order: Urinalysis; SPEC'M 08/22/16 13:15 Test: APPEARANCE, URINE; Value: CLEAR; Range: CLEAR; Status: F Test: COLOR, URINE; Value: YELLOW; Range: YELLOW; Status: F Test: PH,URINE; Value: 6.0; Range: 5.0-9.0; Units: UNITS; Status: F Test: SPECIFIC GRAVITY URINE AUTO; Value: 1.013; Range: 1.002-1.035; Status: F Test: PROTEIN, URINE AUTO; Value: NEGATIVE; Range: NEGATIVE; Units: mg/dL; Status: F Test: GLUCOSE, URINE (UA) AUTO; Value: NEGATIVE; Range: NEGATIVE; Units: mg/dL; Status: F Test: KETONE, URINE AUTO; Value: NEGATIVE; Range: NEGATIVE; Units: mg/dL; Status: F Test: UROBILINOGEN, URINE AUTO; Value: 0.2; Range: 0.0-2.0; Units: mg/dL; Status: F Test: BILIRUBIN, URINE AUTO; Value: NEGATIVE; Range: NEGATIVE; Status: F Test: NITRITE, URINE AUTO; Value: NEGATIVE; Range: NEGATIVE; Status: F Test: LEUKOCYTE ESTERASE, URINE AUTO; Value: TRACE; Range: NEGATIVE; Abnormal: Above high normal; Status: F Test: BLOOD, URINE BLOOD; Value: NEGATIVE; Range: NEGATIVE; Status: F Test: SPERM, URINE AUTO; Range: NONE; Status: I Test: WBC, URINE AUTO; Value: 1; Range: 0-3; Units: /HPF; Status: F Test: RBC, URINE AUTO; Value: 1; Range: 0-3; Units: /HPF; Status: F Test: BACTERIA, URINE AUTO; Value: NEGATIVE; Range: NEGATIVE; Status: F Test: SQUAMOUS EPITHELIAL CELL UR AU; Value: 7; Range: 0-6; Units: /HPF; Status: F Test: MUCUS, URINE; Value: SMALL; Range: NEGATIVE; Status: F Test: HYALINE CAST, URINE AUTO; Value: 0; Range: 0-1; Units: /LPF; Status: F Lab Order: Urine Test-In Lab; SPEC'M 08/22/16 13:15 Test: URINE PREG TEST; Value: POSITIVE; Range: NEGATIVE; Abnormal: Abnormal; Status: F Outcome: 14:25 Discharge ordered by Provider. ke 14:38 Discharge Assessment: Patient awake, alert and oriented x 3. No cognitive and/or nr1 functional deficits noted. Patient verbalized understanding of disposition instructions. patient administered narcotics - no. The following High Risk Discharge criteria are identified: None. Discharged to home ambulatory, with family. Condition: unchanged. No special radiology studies were completed. Property :Personal belongings accompany Pt. 15:01 Patient left the ED. nr1 Signatures: Shreya Vale, Encoding Machine Operator Unit lbd Chyna Lang, PSA PSA ca Oumar Mcdaniel, PSYCHOLOGICAL OPERATIONS PSYCHOLOGICAL OPERATIONS Anne Marie Powers RN RN jo3 Matthew Reeves, MUSIC GRAPHER MUSIC GRAPHER jlf Lisset Gonzalez,WALLY RN nr1 Lisset Johnson nb2 MTDD
--- NOTE | 2016-08-23 08:29 | ECGEPIP ---
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
--- NOTE | 2016-08-24 16:01 | EDDOCDS ---
Nurse's Notes [facility] Name: Xiomara Funes Age: 26 yrs Sex: Female : 1990 Arrival Date: 08/22/2016 Time: 12:04 Bed 4 Private MD: BOB [facility] Diagnosis: Adjustment disorder with depressed mood;Altered mental status, unspecified Presentation: 08/22 12:09 Presenting complaint: EMS states: Was being seen at [place] for a f/u for left knee jo3 pain. While with provider, became verbally unresponsive. Had FSBS 115 on scene prior to EMS arrival. FSBS 88 by FDEMS. Adult Sepsis Screening: Patient has new or worsening altered mentation (1 point). Suicide/Homicide risk assessment- the patient denies having any suicidal and/or homicidal ideations and does not present with any other emotional, behavioral or mental health complaints. Status: The patient is a dependent. Transition of care: patient was received from a primary care office; [place]. 12:09 Acuity: BREANA Level 3 jo3 12:09 Method Of Arrival: Ambulance jo3 14:40 Adult Sepsis Screening: Patient's respiratory rate is less than 22. Systolic blood nr1 pressure is greater than 100. Patient has a qSOFA score of No known or suspected infection- Negative Sepsis Screen. Triage Assessment: 12:34 General: Appears in no apparent distress, Behavior is drowsy, flat. Pain: Denies pain. jo3 HIV screening NA for this visit Offered previously. The patient is triaged at the bedside. See Assessment in Nurses Notes section of ED record. Neurological: Level of Consciousness is lethargic, obeys commands, Oriented to person. Cardiovascular: No deficits noted. Capillary refill is brisk Rhythm is sinus rhythm No ectopy. Chest pain is denied. Respiratory: Airway is patent Respiratory effort is even, unlabored. Derm: Skin is intact, Skin is dry, Skin is normal, Skin temperature is warm. 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 none - PMHx: KNEE PAIN; - PSHx: none; - Family history: Not pertinent. - Social history: Smoking status: unknown if patient ever smoked tobacco. No barriers to communication noted, The patient speaks fluent Romanian. - : The pt / caregiver states he / she is not on anticoagulants. Home medication list is obtained from the patient. - Exposure Risk Screening:: None identified. Screenin:37 Screening information is obtained from the patient. Fall risk: At risk due to apparent jo3 cognitive impairment. Assistance ADL's: requires no assistance with activities of daily living. Abuse/DV Screen: The patient / caregiver reports he/she is: not in a situation that causes fear, pain or injury. Nutritional screening: No deficits noted. Advance Directives: There is no active DNR order. home support is adequate. Assessment: 12:37 Reassessment: see triage assessment . jo3 13:18 General: Appears in no apparent distress, comfortable, Behavior is cooperative, drowsy, jo3 flat. Neurological: Level of Consciousness is awake, Oriented to person, place, time. Cardiovascular: No deficits noted. Respiratory: Airway is patent Respiratory effort is even, unlabored. Derm: Skin is pink, warm & dry. 14:40 Reassessment: Patient lying on her side in bed. No complaints of pain. respirations nr1 even and unlabored. Per patient "my is on his way to pick me up.". Social Work Consult: 14:34 Social Work Note: Pt denies any known health concerns. She is 24 weeks and has ca been suffering from back pain for 2 weeks. 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 She has no family supports in this country and came here from [place] after marrying her . They have a 10 y/o son as well. No SI or HI, no hx of MH concerns. Pt has been reading about [place] and is just not happy with the climate and winter weather. Discussed supports for counseling if pt desires. At this time she does not. No other concerns noted at this time. Vital Signs: 12:14 BP 116 / 69; Pulse 85; Resp 16; Temp 98.0(O); Pulse Ox 99% on R/A; Pain 0/10; nb2 14:38 BP 160 / 52; Pulse 93; Resp 16; Temp 96.2(T); Pulse Ox 97% ; Pain 0/10; nr1 Vitals: 12:12 Log In Time N/A - ambulance arrival. jo3 ED Course: 12:05 Patient visited by Shreya Vale, Turkey Farmer. lbd 12:05 BOB Bustillos is Private Physician. lbd 12:05 Patient moved to Waiting lbd 12:05 Patient moved to 4 lbd 12:12 Triage Initiated jo3 12:13 Patient visited by Anne Marie Broussard RN. jo3 12:14 Patient visited by Lisset Johnson. nb2 12:14 Placed in gown. Bed in low position. Call light in reach. Side rails up X2. Cardiac nb2 monitor on. Pulse ox on. NIBP on. 12:35 Oumar Mcdaniel FNP is PHCP. ke 12:35 Patient visited by Oumar Mcdaniel FNP. ke 12:36 Patient visited by Oumar Mcdaniel FNP. ke 12:37 The patient / caregiver is instructed regarding the plan of care and ED course. jo3 12:38 Patient visited by AnneM arie Broussard RN. jo3 12:50 EKG done. (by ED staff). Reviewed by Oumar AGUILAR. nb2 12:53 Patient visited by Lisset Johnson. nb2 13:18 Maintain field IV. Dressing intact. Good blood return noted. Site clean & dry. Gauge & jo3 site: 20g RAC. 13:21 Patient visited by Anne Marie Broussard RN. jo3 13:21 Drug Eval Toxicology ED Only Sent. jo3 13:21 Urinalysis Sent. jo3 13:22 Urine Test-In Lab Sent. jo3 13:38 Patient visited by Matthew Reeves PCA. jlf 14:06 Patient visited by Matthew Reeves PCA. jlf 14:24 BOB Bustillos is Referral Physician. ke 14:38 Discontinued IV lock intact, bleeding controlled, pressure dressing applied, No nr1 redness/swelling at site. 14:38 No procedures done that require assistance. nr1 15:12 T-Sheet-- Draft Copy was scanned into [employer] and attached to record. gb 15:12 ECG/EKG was scanned into [employer] and attached to record. gb 08/23 07:44 [facility] Payment Agreement was scanned into [employer] and attached to record. lg 08:42 PCR was scanned into [employer] and attached to record. 09:01 EKG-ADULT Returned. EDMS Administered Medications: 08/22 14:00 Drug: D50W 25 ml [dextrose 50 % in water (D50W) intravenous syringe (25 mL)] Route: jo3 IVP; Site: right antecubital; Order Results: Lab Order: CBC with Diff; SPEC'M 08/22/16 13:06 Test: WHITE BLOOD COUNT; Value: 10.3; Range: 4.0-10.0; Abnormal: Above high normal; Units: K/mm3; Status: F Test: RED BLOOD COUNT; Value: 3.71; Range: 4.00-5.40; Abnormal: Below low normal; Units: M/mm3; Status: F Test: HEMOGLOBIN; Value: 10.2; Range: 12.0-16.0; Abnormal: Below low normal; Units: g/dl; Status: F Test: HEMATOCRIT; Value: 29.8; Range: 36.0-47.0; Abnormal: Below low normal; Units: %; Status: F Test: MEAN CORPUSCULAR VOLUME; Value: 80.5; Range: 80.0-96.0; Units: fl; Status: F Test: MEAN CORPUSCULAR HEMOGLOBIN; Value: 27.4; Range: 27.0-33.0; Units: pg; Status: F Test: MEAN CORPUSCULAR HGB CONC; Value: 34.1; Range: 32.0-36.5; Units: g/dl; Status: F Test: RED CELL DISTRIBUTION WIDTH; Value: 13.3; Range: 11.5-14.5; Units: %; Status: F Test: PLATELET COUNT, AUTOMATED; Value: 368; Range: 150-450; Units: k/mm3; Status: F Test: NEUTROPHILS %; Value: 77.8; Range: 36.0-66.0; Abnormal: Above high normal; Units: %; Status: F Test: LYMPH %; Value: 15.9; Range: 24.0-44.0; Abnormal: Below low normal; Units: %; Status: F Test: MONO %; Value: 3.9; Range: 0.0-5.0; Units: %; Status: F Test: EOS %; Value: 1.0; Range: 0.0-3.0; Units: %; Status: F Test: BASO %; Value: 0.3; Range: 0.0-1.0; Units: %; Status: F Test: LARGE UNSTAINED CELL %; Value: 1.1; Range: 0.0-4.0; Units: %; Status: F Test: NEUTROPHILS #; Value: 8.0; Range: 1.8-7.7; Abnormal: Above high normal; Units: K/mm3; Status: F Test: LYMPH #; Value: 1.6; Range: 1.5-6.5; Units: K/mm3; Status: F Test: MONO #; Value: 0.4; Range: 0.0-0.8; Units: K/mm3; Status: F Test: EOS #; Value: 0.1; Range: 0.0-0.50; Units: K/mm3; Status: F Test: BASO #; Value: 0.0; Range: 0.0-0.2; Units: K/mm3; Status: F Test: LARGE UNSTAINED CELL #; Value: 0.1; Range: 0.0-0.4; Units: K/mm3; Status: F Lab Order: Cardiac Injury Profile; SPEC'M 08/22/16 13:06 Test: CPK CREATINE PHOSPHOKINASE; Value: 44; Range: 26-192; Units: U/L; Status: F Test: CK-MB VALUE MASS; Value: 1.0; Range: 0.0-3.6; Units: NG/ML; Status: F Test: MB/CK RELATIVE INDEX; Value: 2.27; Range: < OR =4; Status: F Test Note: ; DIAGNOSIS CRITERIA MMB ng/ml Relative Index (RI) NON-AMI < or = 5 N/A AVELAR ZONE > 5 < or = 4 AMI > 5 > 4 Lab Order: Drug Eval Toxicology ED Only; SPEC'M 08/22/16 13:15 Test: AMPHETAMINES LEVEL URINE; Value: NEGATIVE; Range: NEGATIVE; Status: F Test: BARBITURATES URINE; Value: NEGATIVE; Range: NEGATIVE; Status: F Test: BENZODIAZEPINES URINE; Value: NEGATIVE; Range: NEGATIVE; Status: F Test: CANNABINOIDS URINE; Value: NEGATIVE; Range: NEGATIVE; Status: F Test: COCAINE METABOLITE URINE; Value: NEGATIVE; Range: NEGATIVE; Status: F Test: METHADONE URINE; Value: NEGATIVE; Range: NEGATIVE; Status: F Test: OPIATES URINE; Value: NEGATIVE; Range: NEGATIVE; Status: F Test: TRICYCLIC ANTIDEPRESS URINE; Value: NEGATIVE; Range: NEGATIVE; Status: F Test Note: ; ALL PRESUMPTIVE POSITIVE FINDINGS ARE UNCONFIRMED NORMAL VALUES THRESHOLD IN NG/ML AMPHETAMINES 1000 METHAMPHETAMINES 1000 BARBITURATES 300 BENZODIAZEPINES 300 CANNABINOIDS (THC) 50 COCAINE METABOLITE 300 METHADONE 300 OPIATES 300 PHENCYCLIDINE 25 TRICYCLIC ANTIDEPRESSANTS 1000 RESULTS ARE FOR MEDICAL PURPOSES ONLY. ALL URINE SPECIMENS WILL BE SAVED FOR 3 DAYS. IF CONFIRMATION OF A PRESUMPTIVE POSTIVE SCREEN RESULT IS DESIRED, CALL CHEMISTRY ([phone]) AND REQUEST URINE TO BE SENT TO REFERENCE LAB. FOR A LIST OF CLOSELY RELATED COMPOUNDS PLEASE CALL THE LAB. Lab Order: Liver Profile; SPEC'M 08/22/16 13:06 Test: AST/SGOT; Value: 13; Range: 15-37; Abnormal: Below low normal; Units: U/L; Status: F Test: ALT/SGPT; Value: 16; Range: 12-78; Units: U/L; Status: F Test: ALKALINE PHOSPHATASE; Value: 80; Range: 45-117; Units: U/L; Status: F Test: BILIRUBIN,TOTAL; Value: 0.3; Range: 0.2-1.0; Units: MG/DL; Status: F Test: BILIRUBIN,DIRECT; Value: < 0.1; Range: 0.0-0.2; Units: MG/DL; Status: F Test: TOTAL PROTEIN; Value: 6.7; Range: 6.4-8.2; Units: GM/DL; Status: F Test: ALBUMIN; Value: 2.6; Range: 3.2-5.2; Abnormal: Below low normal; Units: GM/DL; Status: F Test: ALBUMIN/GLOBULIN RATIO; Value: 0.63; Range: 1.00-1.93; Abnormal: Below low normal; Status: F Lab Order: MED Profile; SPEC'M 08/22/16 13:06 Test: GLUCOSE, FASTING; Value: 63; Range: 70-105; Abnormal: Below low normal; Units: MG/DL; Status: F Test: BLOOD UREA NITROGEN; Value: 4; Range: 7-18; Abnormal: Below low normal; Units: MG/DL; Status: F Test: CREATININE FOR GFR; Value: 0.52; Range: 0.55-1.02; Abnormal: Below low normal; Units: MG/DL; Status: F Test: GLOMERULAR FILTRATION RATE; Value: > 60.0; Range: >60; Status: F Test: SODIUM LEVEL; Value: 141; Range: 136-145; Units: MEQ/L; Status: F Test: POTASSIUM SERUM; Value: 3.9; Range: 3.5-5.1; Units: MEQ/L; Status: F Test: CHLORIDE LEVEL; Value: 109; Range: 98-107; Abnormal: Above high normal; Units: MEQ/L; Status: F Test: CARBON DIOXIDE LEVEL; Value: 24; Range: 21-32; Units: MEQ/L; Status: F Test: ANION GAP; Value: 8; Range: 8-16; Units: MEQ/L; Status: F Test: CALCIUM LEVEL; Value: 8.4; Range: 8.5-10.1; Abnormal: Below low normal; Units: MG/DL; Status: F Test Note: ; Units are mL/min/1.73 m2 Chronic Kidney Disease Staging per NKF: Stage I & II GFR >=60 Normal to Mildly Decreased Stage III GFR 30-59 Moderately Decreased Stage IV GFR 15-29 Severely Decreased Stage V GFR <15 Very Little GFR Left ESRD GFR <15 on CLOTHESPIN MACHINE OPERATOR Lab Order: Thyroid Stimulating Hormone; SPEC'M 08/22/16 13:06 Test: THYROID STIMULATING HORMONE; Value: 1.740; Range: 0.358-3.740; Units: uIU/ML; Status: F Lab Order: Troponin; SPEC'M 08/22/16 13:06 Test: TROPONIN I; Value: < 0.02; Range: < 0.10; Units: NG/ML; Status: F Test Note: ; Troponin I Reference Interval for [employer] LOCI: 99th Percentile= 0.00-0.045 ng/ml Risk Stratification: <= 0.10 ng/ml Decreased Risk for Adverse Clinical Events. 0.10-1.50 ng/ml Increased Risk for Adverse Clinical Events. Evaluation of additional criterion and/or repeat testing in 2-6 hours is suggested to rule out myocardial damage. >= 1.50 ng/ml Indicative of Myocardial Injury. Lab Order: Urinalysis; SPEC'M 08/22/16 13:15 Test: APPEARANCE, URINE; Value: CLEAR; Range: CLEAR; Status: F Test: COLOR, URINE; Value: YELLOW; Range: YELLOW; Status: F Test: PH,URINE; Value: 6.0; Range: 5.0-9.0; Units: UNITS; Status: F Test: SPECIFIC GRAVITY URINE AUTO; Value: 1.013; Range: 1.002-1.035; Status: F Test: PROTEIN, URINE AUTO; Value: NEGATIVE; Range: NEGATIVE; Units: mg/dL; Status: F Test: GLUCOSE, URINE (UA) AUTO; Value: NEGATIVE; Range: NEGATIVE; Units: mg/dL; Status: F Test: KETONE, URINE AUTO; Value: NEGATIVE; Range: NEGATIVE; Units: mg/dL; Status: F Test: UROBILINOGEN, URINE AUTO; Value: 0.2; Range: 0.0-2.0; Units: mg/dL; Status: F Test: BILIRUBIN, URINE AUTO; Value: NEGATIVE; Range: NEGATIVE; Status: F Test: NITRITE, URINE AUTO; Value: NEGATIVE; Range: NEGATIVE; Status: F Test: LEUKOCYTE ESTERASE, URINE AUTO; Value: TRACE; Range: NEGATIVE; Abnormal: Above high normal; Status: F Test: BLOOD, URINE BLOOD; Value: NEGATIVE; Range: NEGATIVE; Status: F Test: SPERM, URINE AUTO; Range: NONE; Status: I Test: WBC, URINE AUTO; Value: 1; Range: 0-3; Units: /HPF; Status: F Test: RBC, URINE AUTO; Value: 1; Range: 0-3; Units: /HPF; Status: F Test: BACTERIA, URINE AUTO; Value: NEGATIVE; Range: NEGATIVE; Status: F Test: SQUAMOUS EPITHELIAL CELL UR AU; Value: 7; Range: 0-6; Units: /HPF; Status: F Test: MUCUS, URINE; Value: SMALL; Range: NEGATIVE; Status: F Test: HYALINE CAST, URINE AUTO; Value: 0; Range: 0-1; Units: /LPF; Status: F Lab Order: Urine Test-In Lab; SPEC'M 08/22/16 13:15 Test: URINE PREG TEST; Value: POSITIVE; Range: NEGATIVE; Abnormal: Abnormal; Status: F Radiology Order: EKG-ADULT Test: EKG-ADULT REASON FOR EXAMINATION: CVA <4.5hrs; Stationary ECG Study; [facility] - ED; ; Test Date: 2016-08-22; Pat Name: XIOMARA FUNES Department:; Room: -; Gender: F Brand Specialist: alise; : 1990 Requested By: OUMAR AGUILAR; Order Number: [id number] Reading MD: Bhupendra Covarrubias; Measurements; Intervals [place]; Rate: 86 P: 5; OR: 150 QRS: 26; QRSD: 92 T: 25; QT: 364; QTc: 437; Interpretive Statements; SINUS RHYTHM; ; Electronically Signed On 08-23-2016 8:29:06 EST by Bhupendra Covarrubias; Outcome: 14:25 Discharge ordered by Provider. ke 14:38 Discharge Assessment: Patient awake, alert and oriented x 3. No cognitive and/or nr1 functional deficits noted. Patient verbalized understanding of disposition instructions. patient administered narcotics - no. The following High Risk Discharge criteria are identified: None. Discharged to home ambulatory, with family. Condition: unchanged. No special radiology studies were completed. Property :Personal belongings accompany Pt. 15:01 Patient left the ED. nr1 Signatures: Dispatcher [employer] EDMS Shreya Vale, Turkey Farmer Unit lbd Chyna Lang, FREDO PSA ca Alexandra Vasquez, Reg Reg gb Radha Zhang, Reg Reg lg Oumar Mcdaniel FNP FNP ke [place], JenniferRN RN Matthew Martinez, Lisset Howell,RN RN nr1 Lisset Johnson2 Chart Complete MTDD
--- NOTE | 2016-08-24 16:01 | EDDOCDS ---
Physician Documentation [facility] Name: Xiomara Garg Age: 26 yrs Sex: Female : 1990 Arrival Date: 08/22/2016 Time: 12:04 Bed 4 Private MD: BOB Bustillos Disposition: 08/22/16 14:25 Discharged to Home/Self Care. Impression: Adjustment disorder with depressed mood, Altered mental status, unspecified. - Condition is Stable. - Discharge Instructions: Depression, Adult, Self-Destructive Behavior, Altered Mental Status. - Medication Reconciliation, Local Pharmacy Hours form. - Follow up: BOB Bustillos; When: 4 - 5 days; Reason: Recheck today's complaints, Continuance of care. - Problem is an acute exacerbation. - Symptoms have improved. Historical: - Allergies: No known drug Allergies; - Home Meds: 1. none - PMHx: KNEE PAIN; - PSHx: none; - Family history: Not pertinent. - Social history: Smoking status: unknown if patient ever smoked tobacco. No barriers to communication noted, The patient speaks fluent [place]. - : The pt / caregiver states he / she is not on anticoagulants. Home medication list is obtained from the patient. - Exposure Risk Screening:: None identified. HAND ENGRAVER: 08/22 12:12 2, Living 1, LMP 03/06/2016 jo3 Vital Signs: 12:14 BP 116 / 69; Pulse 85; Resp 16; Temp 98.0(O); Pulse Ox 99% on R/A; Pain 0/10; nb2 14:38 BP 160 / 52; Pulse 93; Resp 16; Temp 96.2(T); Pulse Ox 97% ; Pain 0/10; nr1 MDM: 12:41 Photographic Artist/Pulse Ox/q 15 min VS ordered. ke 12:41 Accucheck ordered. ke 12:41 IV Saline Lock ordered. ke 12:41 Oxygen at 4L/Min NC or Home dosage ordered. ke 12:41 Rhythm Strip to chart ordered. ke 12:41 Heart Tones ordered. ke 12:42 CBC with Diff Ordered. EDMS 12:42 Cardiac Injury Profile Ordered. EDMS 12:42 Drug Eval Toxicology ED Only Ordered. EDMS 12:42 Liver Profile Ordered. EDMS 12:42 MED Profile Ordered. EDMS 12:42 Thyroid Stimulating Hormone Ordered. EDMS 12:42 Troponin Ordered. EDMS 12:42 Urinalysis Ordered. EDMS 12:42 Urine Test-In Lab Ordered. EDMS 12:43 ECG WITH READING ER PHYS+CARDIAG ordered. EDMS 13:42 CBC with Diff Reviewed. ke 13:42 Liver Profile Reviewed. ke 13:42 MED Profile Reviewed. ke 13:42 Urinalysis Reviewed. ke 13:42 Urine Test-In Lab Reviewed. ke 13:42 Troponin Reviewed. ke 13:43 D50W 25 ml IVP once; (0.5 amp) ordered. ke 13:43 Consult: Claim Service Representative ordered. ke 14:20 Liver Profile Reviewed. ke 14:20 MED Profile Reviewed. ke 14:20 Urinalysis Reviewed. ke 14:20 Urine Test-In Lab Reviewed. ke 14:20 Cardiac Injury Profile Reviewed. ke 14:20 Drug Eval Toxicology ED Only Reviewed. ke 14:20 Thyroid Stimulating Hormone Reviewed. ke 14:20 Troponin Reviewed. ke 14:32 Consult: Claim Service Representative complete. ca 14:59 Financial registration complete. lg 15:12 T-Sheet-- Draft Copy was scanned into [employer] and attached to record. gb 15:12 ECG/EKG was scanned into [employer] and attached to record. gb 08/23 07:44 [facility] Payment Agreement was scanned into [employer] and attached to record. lg 08:42 PCR was scanned into [employer] and attached to record. gb Administered Medications: 08/22 14:00 Drug: D50W 25 ml [dextrose 50 % in water (D50W) intravenous syringe (25 mL)] Route: jo3 IVP; Site: right antecubital; Signatures: Dispatcher [employer] EDMS Chyna Lang, PSA PSA ca Alexandra Vasquez, Reg Reg gb Radha Zhang, Reg Reg lg Oumar Mcdaniel, SOCIAL WORK SUPERVISOR SOCIAL WORK SUPERVISOR Anne Marie Powers RN RN Lisset Marquis RN RN nr1 The chart was reviewed and I authenticate all verbal orders and agree with the evaluation and treatment provided.Attachments: 15:12 T-Sheet-- Draft Copy gb 15:12 ECG/EKG gb 08/23 07:44 [facility] Payment Agreement lg Chart Complete MTDD
--- NOTE | 2016-08-24 16:01 | EDDOCDS ---
Physician Documentation [facility] Name: Xiomara Garg Age: 26 yrs Sex: Female : 1990 Arrival Date: 08/22/2016 Time: 12:04 Bed 4 Private MD: BOB Bustillos Disposition: 08/22/16 14:25 Discharged to Home/Self Care. Impression: Adjustment disorder with depressed mood, Altered mental status, unspecified. - Condition is Stable. - Discharge Instructions: Depression, Adult, Self-Destructive Behavior, Altered Mental Status. - Medication Reconciliation, Local Pharmacy Hours form. - Follow up: BOB Bustillos; When: 4 - 5 days; Reason: Recheck today's complaints, Continuance of care. - Problem is an acute exacerbation. - Symptoms have improved. Historical: - Allergies: No known drug Allergies; - Home Meds: 1. none - PMHx: KNEE PAIN; - PSHx: none; - Family history: Not pertinent. - Social history: Smoking status: unknown if patient ever smoked tobacco. No barriers to communication noted, The patient speaks fluent Malaysian. - : The pt / caregiver states he / she is not on anticoagulants. Home medication list is obtained from the patient. - Exposure Risk Screening:: None identified. RUN LEAD: 08/22 12:12 2, Living 1, LMP 03/06/2016 jo3 Vital Signs: 12:14 BP 116 / 69; Pulse 85; Resp 16; Temp 98.0(O); Pulse Ox 99% on R/A; Pain 0/10; nb2 14:38 BP 160 / 52; Pulse 93; Resp 16; Temp 96.2(T); Pulse Ox 97% ; Pain 0/10; nr1 MDM: 12:41 Fisheries Diver/Pulse Ox/q 15 min VS ordered. ke 12:41 Accucheck ordered. ke 12:41 IV Saline Lock ordered. ke 12:41 Oxygen at 4L/Min NC or Home dosage ordered. ke 12:41 Rhythm Strip to chart ordered. ke 12:41 Heart Tones ordered. ke 12:42 CBC with Diff Ordered. EDMS 12:42 Cardiac Injury Profile Ordered. EDMS 12:42 Drug Eval Toxicology ED Only Ordered. EDMS 12:42 Liver Profile Ordered. EDMS 12:42 MED Profile Ordered. EDMS 12:42 Thyroid Stimulating Hormone Ordered. EDMS 12:42 Troponin Ordered. EDMS 12:42 Urinalysis Ordered. EDMS 12:42 Urine Test-In Lab Ordered. EDMS 12:43 ECG WITH READING ER PHYS+CARDIAG ordered. EDMS 13:42 CBC with Diff Reviewed. ke 13:42 Liver Profile Reviewed. ke 13:42 MED Profile Reviewed. ke 13:42 Urinalysis Reviewed. ke 13:42 Urine Test-In Lab Reviewed. ke 13:42 Troponin Reviewed. ke 13:43 D50W 25 ml IVP once; (0.5 amp) ordered. ke 13:43 Consult: Insurance Verification Specialist ordered. ke 14:20 Liver Profile Reviewed. ke 14:20 MED Profile Reviewed. ke 14:20 Urinalysis Reviewed. ke 14:20 Urine Test-In Lab Reviewed. ke 14:20 Cardiac Injury Profile Reviewed. ke 14:20 Drug Eval Toxicology ED Only Reviewed. ke 14:20 Thyroid Stimulating Hormone Reviewed. ke 14:20 Troponin Reviewed. ke 14:32 Consult: Insurance Verification Specialist complete. ca 14:59 Financial registration complete. lg 15:12 T-Sheet-- Draft Copy was scanned into [employer] and attached to record. gb 15:12 ECG/EKG was scanned into [employer] and attached to record. gb 08/23 07:44 [facility] Payment Agreement was scanned into [employer] and attached to record. lg 08:42 PCR was scanned into [employer] and attached to record. gb Administered Medications: 08/22 14:00 Drug: D50W 25 ml [dextrose 50 % in water (D50W) intravenous syringe (25 mL)] Route: jo3 IVP; Site: right antecubital; Signatures: Dispatcher [employer] EDMS Chyna Lang, PSA PSA ca Alexandra Vasquez, Reg Reg gb Radha Zhang, Reg Reg lg Oumar Mcdaniel, MOTOR TRANSPORT INSPECTOR MOTOR TRANSPORT INSPECTOR Anne Marie Powers RN RN Lisset Marquis RN RN nr1 The chart was reviewed and I authenticate all verbal orders and agree with the evaluation and treatment provided.Attachments: 15:12 T-Sheet-- Draft Copy gb 15:12 ECG/EKG gb 08/23 07:44 [facility] Payment Agreement lg Chart Complete MTDD
== END 2016-08-22 15:01 | disposition home or self-care (01) ==
LOC: M ED 12:04
DX: O99.342 Other mental disorders complicating pregnancy, second trimester (principal); F43.21 Adjustment disorder with depressed mood; Z3A.24 24 weeks gestation of pregnancy

== ENCOUNTER 2016-09-12 16:12 | Outpatient (CLI) | payer OTHER ==
[~2016-09-12] VITALS: Ht 162.6 cm; Wt 85.0 kg
[2016-09-12 16:32] VITALS: BP 115/64
--- NOTE | 2016-09-12 17:20 | IPNPDOC ---
Text Note Date of Service The patient was seen on 09/12/16. NOTE Subjective: Xiomara is a 26yo with SIUP at 27w1d who presents to L&D for chief complaint of cramping. She states she has had cramping for a few weeks, all across her abdomen, sometimes it makes her feel she needs to have a bowel movement, but when she tries to have a bowel movement she is unable to. She denies being constipated- has a soft stool daily. No other complaints. No recent intercourse. No exertion. ROS: Admits: Gross movement, good oral hydration. Denies: Vaginal bleeding/discharge/loss of fluid, fever, N/V, dysuria, urinary urgency, flank pain, vaginal itching or pain. Objective: Vitals wnl NST: FHT 150s with moderate variability, pos accels, neg decels. Reassuring NST for gestational age. [place]: no CTX, no evidence of uterine irritability Physical Exam- General: WDWN gravid female in NAD Mental : AAOx3 HEENT: oral mucosa moist Abdominal: Soft NT/ND without guarding or rebound Extremity: no edema in LE bilat. Assessment: Xiomara is a 26yo with SIUP at 27w1d without evidence of latent or active labor. Vitals normal with benign physical exam. Reassuring NST for gestational age with NO ctx or uterine irritability. No urinary or vaginal complaints. course uncomplicated and PMHx noncontributory. Plan: - labor precautions discussed with patient. -f/u at next scheduled OB appt on Sep 20 -encouraged adequate hydration -Return precautions given for bleeding, fluid loss, contractions, decreased movement, fever. -medrec reviewed Dr. Amina Encinas MD [place] Russ MD Sep 12, 2016 17:20
== END 2016-09-12 17:25 | disposition home or self-care (01) ==
LOC: M LDO 16:12
PROVIDERS: ATTEND Obstetrics & Gynecology
DX: O26.892 Other specified pregnancy related conditions, second trimester (principal); R10.9 Unspecified abdominal pain; Z3A.27 27 weeks gestation of pregnancy

== ENCOUNTER 2016-12-11 06:09 | Inpatient (IN) | payer OTHER ==
[2016-12-11] VITALS (19 sets, daily range): BP systolic 96–154; BP diastolic 56–83
[~2016-12-11] VITALS: Ht 167.6 cm; Wt 90.0 kg
[2016-12-11] MEDS ORDERED: BUTORPHANOL 2 MG/ML INJ (J0595) IV ONE (08:15)
[2016-12-11] MEDS ORDERED: LACTATED RINGER'S 1000 ML IV ONE ×2 (08:15→08:30)
[2016-12-11] MEDS ORDERED: LR 1,000 ML IV SCH (08:18)
[2016-12-11] MEDS ORDERED: PROMETHAZINE INJ 25 MG/ML VIAL (J2550) IV ONE (08:30)
[2016-12-11 08:40] LABS: MEAN CORPUSCULAR HEMOGLOBIN 23.5 pg (27.0-33.0); MEAN CORPUSCULAR HGB CONC 32.7 g/dl (32.0-36.5); MEAN CORPUSCULAR VOLUME 71.9 fl (80.0-96.0); WHITE BLOOD COUNT 13.6 K/mm3 (4.0-10.0)
[2016-12-11] MEDS: PRENATAL VITAMIN TAB PO SCH (09:00)
--- NOTE | 2016-12-11 10:21 | HPE ---
DATE OF ADMISSION: 12/11/2016 This lady came in at 6:45 in the morning. A 26-year-old 3, para 1, with intermittent painful regular contractions. At that time, she was found to be vertex,75, -2, and posterior. Presently, she is vomiting and nauseating, rolling around in bed, actively randi with a category 1 strip. Her cervix is very soft, anterior, 3-4 stretchy bulging membranes, 75% effaced, -2 station, and is requesting pain management. Her past history iss August 2005 at 41 weeks, induction of labor, delivered a live male 8-1/2 pounds because of postdate gestation. In 2010, had a spontaneous miscarriage of twins at 4 months. The rest of her history is that she is sickle cell positive on 05/04/2016. The rest of her laboratory work, she is O+, HIV negative, hepatitis negative, rapid plasma reagin (RPR) negative, rubella immune. Varicella by history. Pap was normal. Urine is negative. Gonorrhea and chlamydia are negative. I do not have a glucose available at the present time. Her blood pressure is 124/83, respirations are 18, pulse 102, and temperature is 97.2. Urine is not a is not available. Her CBC is not available as yet. The rest of the examination is unremarkable. As mentioned, she has a category 1 strip, in moderate distress. She is normocephalic, atraumatic. Neck: Full range of motion. Pupils equal and reactive to light. Distal pulses are symmetric. No evidence of deep venous thrombosis (DVT), pulmonary embolism (PE), or superficial phlebitis. Lungs are clear bilaterally to the bases. No costovertebral angle (CVA) tenderness. Appropriate symphysis fundus height. Four quadrant bowel sounds are noted. She has no rashes, lesions, or pruritus. No arthralgia or myalgia. No complaint of cough, wheeze, shortness of breath, or dyspnea on exertion. No chest pain. Not bleeding. Neuro complete. No incontinency, urgency, or frequency. No nausea, vomiting, diarrhea, or constipation. I do not have a 1-hour glucose available. Pap smear was normal. Past medical history is unremarkable except for sickle cell positive. Past surgical history is unremarkable. FAMILY HISTORY: Noncontributory. She does not smoke or drink or abuse drugs. There is no domestic violence. In summary, we have a term gestation in active labor with acute distress because of pain. A plan of management is to hydrate, epiduralize the patient, and we anticipate spontaneous vaginal delivery. ALYCE
[2016-12-11] MEDS ORDERED: FENTANYL 2MCG/ML ROPIVACAINE 0.2% IN 0.9% NACL 200ML IVBAG As Ordered ONE (11:25)
[2016-12-11] MEDS: OXYTOCIN DRIP 30 UNITS in APPROPRIATE DILUENT 1 EA IV SCH ×2 (13:54→14:03)
[2016-12-11 15:21] LABS: CORD GAS ABE A -7.4; CORD GAS ABE V -9.4; CORD GAS HCO3 A 21.2 MEQ/L; CORD GAS HCO3 V 17.5 MEQ/L; CORD GAS O2 SAT A < 15.0 %; CORD GAS PCO2 A 54.8 mmHg; CORD GAS PCO2 V 41.5 mmHg; CORD GAS PH A 7.206 UNITS; CORD GAS PH V 7.242 UNITS; CORD GAS PO2 A 11.3 mmHg; CORD GAS PO2 V 15.7 mmHg; CORD GAS SBC V 15.4 MEQ/L; CORD GAS TCO2 A 22.9 MEQ/L; CORD GAS TCO2 V 18.7 MEQ/L
[2016-12-11] MEDS ORDERED: DIBUCAINE 1% OINTMENT 30GM TOP PRN (15:30)
[2016-12-11] MEDS ORDERED: MOM 30ML SUSPENSION UDC PO PRN (15:30)
[2016-12-11] MEDS ORDERED: MEASLES,MUMPS,RUBELLA VACCINE INJ (MMR-II) (90707) SC SCH (15:30)
[2016-12-11] MEDS ORDERED: METHYLERGONOVINE MALEATE 0.2 MG TAB PO PRN (15:30)
[2016-12-11] MEDS ORDERED: DOCUSATE SODIUM 100 MG CAP PO PRN (15:30)
[2016-12-11] MEDS ORDERED: ANUSOL HC CREAM 30GM TOP PRN (15:30)
[2016-12-11] MEDS ORDERED: RHOGAM 300 MCG (1500 IU) INJ (J2790) IM SCH (15:30)
--- NOTE | 2016-12-11 16:49 | IPN ---
DATE: 12/11/2016 This patient and her requested circumcision of their male . After discussing the risks and benefits of circumcision, the medical and nonmedical indications, penile block and aftercare, expressed understanding of penile block and aftercare, signed and witnessed the consent form and we await the medical clearance by the production superintendent hydro. Copy To: Clare TRIANA
[2016-12-11] MEDS: IBUPROFEN 800 MG TAB PO PRN (20:23)
[2016-12-12 06:16] VITALS: BP 117/67
[2016-12-12 07:03] LABS: MEAN CORPUSCULAR HEMOGLOBIN 24.1 pg (27.0-33.0); MEAN CORPUSCULAR HGB CONC 33.4 g/dl (32.0-36.5); RED CELL DISTRIBUTION WIDTH 16.4 % (11.5-14.5)
[2016-12-12] MEDS: PRENATAL VITAMIN TAB PO SCH (07:21)
--- NOTE | 2016-12-12 10:43 | DN ---
DATE OF DELIVERY: 12/11/2016 This lady is a 3, now para 2, but she came in in spontaneous labor. She had some spontaneous decelerations late with decrease reduced variability, at 9 cm, and the artificial rupture of membranes (AROM) was nondraining. Meconium-stained liquor, and the heart did picker feeder with oxygen and positional change, and she then began to develop accelerations with regional variability of 6-25 beats per minute. She was a good pusher, but the baby was in the persistent occipitoposterior (POP) position, and we did see some variable decelerations with extended times where the contractions were not effective. Pitocin 2 milliunits up to the maximum of 6 milliunits was used. Better improved the contractions; and with pushing and manual rotation, we were able to get the head down to the occipitoanterior (OA) position. We had a prolonged area where heart rate was baseline 100 and did not accelerate. After a significant amount of pushing with Dr. Lee in the room, we applied the vacuum to the head. The patient was in the OA position. The cervix was fully dilated. The bladder was empty, and we did one pull to the perineum with 5 mmHg. We then took off the vacuum, and the patient has had a spontaneous vaginal delivery of a livebirth male infant, weighing 8 pounds 6 ounces, 3798 grams, scores of 7 and 9 at 1 and 5 minutes, respectively. The cord around the neck loose. Dr. Lee was resuscitating the baby for meconium. The placenta delivered spontaneously thereafter. Three vessels in the cord. Arterial and venous pH was performed. Membranes were stained with meconium. On examination, the vagina, the bladder, and the rectum, everything appeared to be intact. The sphincter was tight, and there was no trauma to the vagina. The uterus contracted well under Pitocin. The patient and the baby tolerating the procedure well.
[2016-12-12] MEDS ORDERED: PRENTAB9 PO (16:22)
[2016-12-12] MEDS: IBUPROFEN 800 MG TAB PO PRN (16:28)
[2016-12-12 18:00] VITALS: BP 117/68
[2016-12-13 01:30] VITALS: BP 129/64
[2016-12-13] MEDS: IBUPROFEN 800 MG TAB PO PRN (05:50)
[2016-12-13 06:00] VITALS: BP 142/68
[2016-12-13] MEDS ORDERED: OXYTOCIN INJ 10 UNITS/ML VIAL (J2590) IV ONE (06:00)
[2016-12-13 06:30] VITALS: BP 132/54
[2016-12-13] MEDS: PRENATAL VITAMIN TAB PO SCH (07:45)
--- NOTE | 2016-12-13 08:11 | IPN ---
DATE: 12/12/2016 20-year-old 3, para 2 came in with spontaneous labor at 40 weeks' gestation, delivered a live male , 8 pounds 6 ounces, 3798 grams, scores of 7 and 9 at 1 and 5 minutes, respectively. Arterial pH was 7.20, base excess -7.4, venous pH 7.24, base excess -9.4. Her admitting hemoglobin 11.5, hematocrit 35.2 and platelets are 391. This morning, she is doing well breast-feeding. We discussed circumcision of her male . Her blood pressure is 139/78, respirations are not available, pulse is 81 and temperature is not available. We discussed phlebitis, cystitis, mastitis, endometritis and cellulitis, diet, exercise, pain management, perineal, breast and wound care. She is planning using Nexplanon as a method of control. We will discuss that and give her counseling at her 6-week checkup. In summary, we have a term gestation, delivered a live male , possible discharge tomorrow.
[2016-12-13] MEDS ORDERED: COLA100C3 PO (09:20)
[2016-12-13] MEDS ORDERED: IBUP-1114 PO (09:20)
[2016-12-13] MEDS ORDERED: DIBU1OIN TOP (09:20)
--- NOTE | 2016-12-13 11:17 | DS.PDOC ---
Discharge Summary General Date of Admission December 11, 2016 at 08:09 Date of Discharge [id number] Discharge Summary PROCEDURES PERFORMED DURING STAY: spontaneous vaginal delivery ADMITTING DIAGNOSES: Labor DISCHARGE DIAGNOSES: Healthy male HOSPITAL COURSE: Admitted in active labor. Underwent an uncomplicated delivery. See delivery note. DISCHARGE MEDICATIONS: Standard meds, dispensed. Nor QD for control Physical exam: see note from this morning LABORATORY DATA: Please see below. ACTIVITY: as tolerated. Nothing in vagina for 6 weeks. No bathing for 2 weeks , shower only. DIET: regular DISPOSITION:stable TIME SPENT ON DISCHARGE: Greater than 15 minutes. Sessions Vital Signs/I&Os Vital Signs Date Time Temp Pulse Resp B/P (MAP) Pulse Ox O2 Delivery O2 Flow Rate FiO2 12/13/16 06:30 98.6 74 16 132/54 (80) 12/11/16 11:50 Room Air Discharge Medications Scheduled Multivitamins/ ( 27-0.8 mg) 1 Tab Tab, 1 TAB PO DAILY, (Reported ) Scheduled PRN Dibucaine (Dibucaine) 1 % Oin, 0 TOP Q4HP PRN for PAIN, (Reported) Docusate Sodium (Colace) 100 Mg Cap, 100 MG PO QHSP PRN for CONSTIPATION, ( Reported) Ibuprofen (Ibuprofen) 400 Mg Tab, 800 MG PO Q8HP PRN for PAIN, (Reported) Allergies Coded Allergies: Acetaminophen (Unverified Allergy, Intermediate, RASH,ITCHING, 12/11/16) JEFFERY MUÑOZ MD December 13, 2016 11:17
--- NOTE | 2016-12-13 11:21 | IPNPDOC ---
Text Note Date of Service The patient was seen on 12/13/16. NOTE PPD2 prog note States feeling well, no complaints. No heavy VB. Pain controlled. Voiding, ambulatory. Bonding well and brst feeding. Nexplanon for PP BC. VSSAF CTAB RRR Ut at U-2, firm Ext no CCE a/p: Doing well, d/c home Sessions VS,Kristyn, I+O VS, Kristyn, I+O Vital Signs Date Time Temp Pulse Resp B/P (MAP) Pulse Ox O2 Delivery O2 Flow Rate FiO2 12/13/16 06:30 98.6 74 16 132/54 (80) 12/11/16 11:50 Room Air SESSIONS,JEFFERY Mukherjee MD December 13, 2016 11:21
== END 2016-12-13 11:40 | disposition home or self-care (01) | DRG 775 ==
LOC: M LDO 06:09 → M LDI 08:09 → M OBS 17:07
PROVIDERS: ADMIT Obstetrics & Gynecology; ATTEND Obstetrics & Gynecology
PROC: 10D07Z6 Extraction of Products of Conception, Vacuum, Via Natural or Artificial Opening (ICD-10-PCS; principal; 2016-12-11)
PROC: 10907ZC Drainage of Amniotic Fluid, Therapeutic from Products of Conception, Via Natural or Artificial Opening (ICD-10-PCS; 2016-12-11)
DX: O48.0 Post-term pregnancy (principal); Z37.0 Single live birth; O77.0 Labor and delivery complicated by meconium in amniotic fluid; O64.0XX0 Obstructed labor due to incomplete rotation of fetal head, not applicable or unspecified; O69.81X0 Labor and delivery complicated by cord around neck, without compression, not applicable or unspecified; O76 Abnormality in fetal heart rate and rhythm complicating labor and delivery; Z3A.40 40 weeks gestation of pregnancy; Z79.899 Other long term (current) drug therapy; Z88.6 Allergy status to analgesic agent